=== PATIENT | male | born 1995 | race Caucasian/White ===

== ENCOUNTER 2020-01-13 07:28 | Emergency (ER) | payer OTHER, SELFPAY ==
--- NOTE | ~2020-01-13 | XR_ITS ---
EXAMINATION: XR chest 2V DATE: 01/13/2020 08:12 INDICATION: Shortness of breath and productive cough TECHNIQUE: PA and lateral views of the chest were obtained. COMPARISON: None FINDINGS: Perihilar bronchial wall thickening consistent with bronchitis. Mild airspace opacities at the left l ower lung zone which could represent atelectasis and/or pneumonia. No pulmonary edema, pleural effusi on or pneumothorax. The cardiomediastinal silhouette is normal. Visualized bones and soft tissues are unremarkable. IMPRESSION: 1. Bronchitis with mild atelectasis versus pneumonia at the left lower lung zone. Reviewed, dictated and finalized at location A. OPERATIONS SPECIALIST IMPRESSION: 1. Bronchitis with mild atelectasis versus pneumonia at the left lower lung zon e.
[2020-01-13 07:39] VITALS: BP 131/79; PULSE 115; RESP 20; TEMP 38.8; O2SAT 98
--- NOTE | 2020-01-13 07:58 | ED.URI ---
HPI - URI/Sore Throat General Chief Complaint: Upper Respiratory Infection Stated Complaint: diff breathing Time Seen by Provider: 01/13/20 07:45 Source: patient and RN notes reviewed Mode of arrival: ambulatory Limitations: no limitations History of Present Illness HPI Narrative: Pt is a 24 y/o male presenting to the ED c/o SOB. Pt reports he started experiencing SOB this morning. Pt states he was diagnosed with Influenza earlier this week and was prescribed Tamaflu last Wednesday, and notes he is also taking DayQuil, Mucinex, and Tessalon Perles. Pt also reports wheezing, productive cough with brown phlegm, and fatigue. Pt states he did not receive the flu shot this season. Pertinent past history: other (Influenza) Onset (ago): unknown Associated symptoms: cough (Productive with brown phlegm) and other (Fatigue; Wheezing) Related Data Home Medications Medication Instructions Recorded Confirmed benzonatate mg PO 01/13/20 oseltamivir mg 01/13/20 Allergies Allergy/AdvReac Type Severity Reaction Status Date / Time Penicillins Allergy Unknown Unknown Verified 01/13/20 07:42 Review of Systems Review of Systems: All systems reviewed & are unremarkable except as noted in HPI and below Constitutional: Constitutional: Reports fatigue Respiratory: Respiratory: Reports cough (Productive with brown phlegm), Reports dyspnea and Reports wheezing PMFSH Past Medical History Medical History Eczema Knee effusion Pneumonia Surgical History Surgical History No significant past surgical history Family History Family History Father Patient's father is in good health Sibling Patient's brother is in good health Mother Family history of hypothyroidism Social History Social History Smoking status: Never smoker Alcohol intake: never Gender identity (if verbalized by the patient): Male Exam Const: General: no acute distress, alert and ill appearing Nutritional Appearance: well nourished HENMT: Mouth: Yes lip normal Eyes: Conjunctivae: conjunctivae normal Resp: Effort & Inspection: normal respiratory effort Auscultation: clear to auscultation bilaterally Cardio: Rate: regular rate Rhythm: regular rhythm Back/Spine/Pelvis: Other: Full ROM Skin: General skin exam: normal color Other: Warm; Dry Neuro: General: patient oriented x3 Speech: normal speech Extrem: General: full ROM Psych: Mental Status: mental status grossly normal Affect: normal affect Course Vital Signs Vital signs: Vital Signs Temperature 38.8 C H 01/13/20 07:39 Pulse Rate 115 H 01/13/20 07:39 Respiratory Rate 20 01/13/20 07:39 Blood Pressure 131/79 01/13/20 07:39 Pulse Oximetry 98 01/13/20 07:39 Temperature 37.3 C 01/13/20 09:42 Pulse Rate 82 01/13/20 09:42 Respiratory Rate 18 01/13/20 09:42 Blood Pressure 133/78 01/13/20 09:42 Pulse Oximetry 99 01/13/20 09:42 MDM - URI/Sore Throat MDM Narrative Medical decision making narrative: He was positive for influenza. CXR shows possible infiltrate, most likely atelectasis. I will start azithromycin incase this is secondary infection. He should be safe for outpatient treatment at this time. Differential Diagnosis Differential diagnosis: Likely influenza and other (pneumonia, otitis media) Medical Records Attestation: I reviewed the patient's medical records. Lab Data Attestation: I reviewed the patient's lab results. Labs: Influenza A Screen Negative Reference Range: Negative Influenza B Screen Positive Reference Range: Negative Imaging Data Radiologist's impression: ITS Impressions Chest X-Ray 01/13/20 08:15 IMPRESSION: 1. Bronchitis with mild atelectasis versus pneumonia at the left lower lung zone. D
[2020-01-13 08:13] VITALS: PULSE 106; RESP 18
[2020-01-13] MEDS: ALBUTEROL SULFATE NEB 2.5 MG/0.5 ML INH 5 MG INHALATION (08:13)
[2020-01-13 08:24] VITALS: PULSE 101; RESP 18
[2020-01-13] MEDS: KETOROLAC (*BKC) 60 MG/2 ML VIAL IM (08:24)
[2020-01-13] MEDS: ACETAMINOPHEN 500 MG TABLET 1000 MG PO (08:24)
[2020-01-13 08:54] VITALS: TEMP 37.3
[2020-01-13] MEDS: AZITHROMYCIN 250 MG TABLET 500 MG PO (09:41)
[2020-01-13 09:42] VITALS: BP 133/78; PULSE 82; RESP 18; TEMP 37.3; O2SAT 99
== END 2020-01-13 09:42 | disposition home or self-care (01) ==
PROVIDERS: Emergency Provider Emergency Medicine
DX: J10.1 Influenza due to other identified influenza virus with other respiratory manifestations (principal)
CPT/HCPCS: 71046; 87804; 94640; 96372; 99284; A9270; J1100; J1885